=== PATIENT | male | born 1985 | race African-American/Black ===

== ENCOUNTER 2024-02-10 16:34 | Emergency (ER) | payer MEDICAID ==
[~2024-02-10] VITALS: Ht 188 cm; Wt 125.0 kg
--- NOTE | 2024-02-10 16:48 | ED.PDOC ---
History of Present Illness HPI Comments 38-year-old male with PMHx Schizoaffective Disorder, Seizures brought in by EMS presents with a chief complaint of hallucinations x onset today. Patient states that he hears voices, but they don't tell him to harm himself or others. Patient reports that he would like to be evaluated for a three-day hold. No other symptoms or modifying factors present at this time. Time Seen by MD: 16:40 Reviewed Notes: Nurses Notes, Medications, Allergies Allergies: Coded Allergies: NO KNOWN ALLERGIES (Unverified , 02/10/24) Information Source: Patient, Emergency Med Personnel Mode of Arrival: EMS Severity: Moderate Timing: Minutes Duration: Since onset Prehospital treatment: None Past Medical History PAST MEDICAL HISTORY: Schizophrenia, Seizures Surgical History (Other): FRONTAL LOBE SURGERY, RIGHT EYE REMOVAL Family History Family History: Reviewed,noncontributory to illness Social History Smoker: Non-Smoker Alcohol: Denies ETOH Use Drugs: Denies Drug Use Lives In: Home Constitutional: denies: chills, diaphoresis, fatigue, fever, malaise, sweats, weakness, others EENTM: denies: blurred vision, double vision, ear bleeding, ear discharge, ear drainage, ear pain, ear ringing, eye pain, eye redness, hearing loss, mouth pain, mouth swelling, nasal discharge, nose bleeding, nose congestion, nose pain, photophobia, tearing, throat pain, throat swelling, voice changes, others Respiratory: denies: cough, hemoptysis, orthopnea, SOB at rest, shortness of breath, SOB with excertion, stridor, wheezing, others Cardiovascular: denies: chest pain, dizzy spells, diaphoresis, Dyspnea on exertion, edema, irregular heart beat, left arm pain, lightheadedness, palpitations, PND, syncope, others Gastrointestinal: denies: abdomen distended, abdominal pain, blood streaked bowels, constipated, diarrhea, dysphagia, difficulty swallowing, hematemesis, melena, nausea, poor appetite, poor fluid intake, rectal bleeding, rectal pain, vomiting, others Genitourinary: denies: burning, dysuria, flank pain, frequency, hematuria, incontinence, penile discharge, penile sore, pain, testicle pain, testicle swelling, urgency, others Neurological: denies: dizziness, fainting, headache, left sided numbness, left sided weakness, numbness, paresthesia, pre-existing deficit, right sided numbness, right sided weakness, seizure, speech problems, tingling, tremors, weakness, others Musculoskeletal: denies: back pain, gout, joint pain, joint swelling, muscle pain, muscle stiffness, neck pain, others Integumetry: denies: bruises, change in color, change in hair/nails, dryness, laceration, lesions, lumps, rash, wounds, others Allergic/Immunocompromised: denies: Difficulty Healing, Frequent Infections, Hives, Itching, others Hematologic/Lymphatic: denies: anemia, blood clots, easy bleeding, easy bruising, swollen glands, others Endocrine: denies: excessive hunger, excessive sweating, excessive thirst, excessive urination, flushing, intolerance to cold, intolerance to heat, unexplained weight gain, unexplained weight loss, others Psychiatric: reports: schizophrenia (HALLUCINATIONS); denies: anxiety, bipolar disorder, depression, hopeless, panic disorder, sleepless, suicidal, others All Other Systems: Reviewed and Negative Physical Exam General Appearance: Mild Distress HEENT: Normal ENT Inspection, Pharynx Normal, TMs Normal Neck: Full Range of Motion, Non-Tender, Normal, Normal Inspection Respiratory: Chest Non-Tender, Lungs Clear, No Accessory Muscle Use, No Respiratory Distress, Normal Breath Sounds Cardiovascular: No Edema, No JVD, No Murmur, No Gallop, Normal Peripheral Pulses, Regular Rate/Rhythm Breast Exam: Deferred Gastrointestinal: No Organomegaly, Non Tender, No Pulsatile Mass, Normal Bowel Sounds, Soft Genitalia: Deferred Pelvic: Deferred Rectal: Deferred Extremities: No calf tenderness, Normal capillary refill, Normal inspection, Normal range of motion, Non-tender, No pedal edema Musculoskeletal : Apperance: Normal Neurologic: Alert, golf club head former II-XII nml as Tested, No Motor Deficits, Normal Affect, Normal Mood, No Sensory Deficits Cerebellar Function: Normal Reflexes: Normal Skin: Dry, Normal Color, Warm Lymphatic: No Adenopathy Was a procedure done? Was a procedure done?: No Differential Dx Considerations may include: Psychosis, generalized weakness, homicidal ideation, suicidal ideation X-Ray, Labs, Meds, VS Vital Signs Date Time Temp Pulse Resp B/P (MAP) Pulse Ox O2 Delivery O2 Flow Rate FiO2 02/10/24 17:34 81 17 98 Room Air 02/10/24 17:34 98.1 81 18 131/82 (98) 97 98.1 02/10/24 16:40 98.1 76 18 136/72 (93) 98 Lab Test 02/10/24 16:55 Range/Units Plasma/Serum Blood Alcohol < 3.0 <10 mg/dL Current Medications Medications (Trade) Dose Ordered Sig/Mckayla Route Start Time Stop Time Status Last Admin Levetiracetam (Keppra Tablet) 1,000 mg ONCE ONCE PO 02/10/24 16:45 02/10/24 16:46 DC 02/10/24 17:33 The patient was given Keppra 1000 mg by mouth The alcohol level is negative At this time, the patient is having evaluation by the psychiatrist The patient will be signed out to Dr. Sanchez Time of 1ST Reevaluation: 17:10 Reevaluation 1ST: Unchanged Patient Education/Counseling: Diagnosis, Treatment, Prognosis Family Education/Counseling: No Family Present Departure 1 Departure Time of Disposition: 20:35 Impression: Primary Impression: Schizoaffective disorder Qualified Codes: F25.9 - Schizoaffective disorder, unspecified Additional Impression: Hallucinations Disposition: 30 STILL A PATIENT Condition: Fair Critical Care Note Critical Care Time?: No Stability Stability form required: No Heart Score Heart Score: Heart Score Response (Comments) Value History N/A 0 EKG N/A 0 Age N/A 0 Risk Factors N/A 0 Troponin N/A 0 Total 0 I personally scribed for DESTINY CHILDRESS MD ([email or web address]) on 02/10/24 at 16:48. Electronically submitted by Yunier Lowe ([email or web address]). DESTINY CHILDRESS MD Feb 10, 2024 16:48
[2024-02-10] MEDS: levETIRAcetam 500 MG TAB PO ONE (17:33)
--- NOTE | 2024-02-10 21:26 | DVHINCON2 ---
Date of Service if different f: Feb 10, 2024 Time of Service: 21:09 Consult Consult Note PSYCHIATRY ED NEW CONSULT HPI: 38 yo M pt with PPH of schizoaffective disorder and seizure disorder presents to ED BIB EMS for safety, psychiatric stabilization and possible med initiation in setting of homelessness, med noncompliance, and AH. Psychiatry consulted for safety evaluation and recommendations in context of current presentation Per pt, reports he has not taken any psychotropic meds for over several months resulting in vague NC/NT AH like "someone is playing with me, i dont feel like myself, everything around me in confusing, i need to go to psychiatric hospital to get back on my meds" Currently denies depressed mood, hopelessness, helplessness, isolation, negative thoughts, loss of interest, or anhedonia. Denies anxiety/panic/OCD/PTSD symptoms. Sleep/appetite/energy/conc relatively WNL. Adamantly denies SI/HI. Denies VH/paranoia/catatonic. No overt manic, major depressive, cognitive, dissociative phenomena, panic, or somatic symptoms noted. Appears future oriented/goal directed. Denies acute psychosocial stressors. Pt currently does not have psychiatrist/therapist out in community although has sought outpt MH services in past. Currently not on any psychotropic agents for past several motnhs. Prior psych med trials abilify, depakote, trazodone. Some hx of med noncompliance. Freq THC use, denies ETOH or IDU Never , ? children, unemployed/ssi, currently homeless, no legal issues, limited support system noted, primarily GOD. Unknown trauma hx. Unknown FH. No acute medical issues although hx of seizures. No recent head injuries, NKDA Does not have hx of suicide attempts/SIB/PSG although has had prior psych hospitalizations for psychosis. Denies history of violence, unprovoked aggression, or assaultive behaviors. Does not have access to firearms. Currently denies SI/HI. MSE: General Appearance/Behavior: Alert and awake; appears stated age, obese, fair grooming and hygiene; calm and cooperative, fair eye contact, no PMA/PMR Speech: coherent, rrr Thought Process: linear, logical, limited/concrete Thought Content: Abnormal Thoughts and Perceptions: None Homicidality / Violent Thoughts: None Suicidality: adamantly denies SI Hallucinations: vague AH Delusions: denies paranoia, persecutory, or grandiose delusions Obsessions /compulsions : None Judgment and Insight: marginally fair to limited Mood & Affect: "okay" with mood-congruent, bit confused Orientation: oriented to person, place, time Attention/Concentration: appears intact Memory: grossly intact Language: no unusual or inappropriate language Assessment: 38 yo M pt with PPH of schizoaffective disorder and seizure disorder presents to ED BIB EMS for safety, psychiatric stabilization and possible med initiation in setting of homelessness, med noncompliance, and AH. Endorses AH in setting of ongoing med noncompliance but denies SI/HI/VH. No outpt MH services at present. Presently, pt does not show any signs of immediate danger to self or others hence does not meet criteria for 5150 or involuntary inpatient psych admission as is not DTS, DTO or GD. However voluntary inpt psychiatric hospitalization was offered and pt expressed in this to get stabilized on meds Pt will benefit from inpatient psych admission for safety, psychiatric s tabilization and possible medication initiation/ optimization. Pt willing to transfer to inpt psych hospitalization voluntarily. Primary Diagnosis: Schizoaffective disorder unspecified. THC use disorder moderate Recommend vol transfer to inpt psych facility for higher level of care 1:1 sitter is NOT recommended Recommend continuation/restart of outpt med regimen - abilify 10 mg bid, depakote 500 mg bid and Trazodone 50 mg qhs Risks/benefits/alternative treatments discussed, informed consent provided by pt If patient later refuses voluntary hospitalization or if no voluntary beds are available, pt does NOT need 5150 hold, pt can be discharged with housing resources Pt verbalized understanding and is receptive to above tx plan This case was discussed with ED nurse/provider and all parties in agreement with above tx plan Richard Acevedo MD Plan discussed with: Patient RICHARD ACEVEDO MD Feb 10, 2024 21:26
[2024-02-10] MEDS: traZODone HCL 50 MG TAB PO ONE (23:51)
[2024-02-11 03:23] VITALS: RESP 16; O2SAT 96
[2024-02-11 08:02] VITALS: BP 143/56; PULSE 81; RESP 16; TEMP 98.2; O2SAT 97
[2024-02-11] MEDS ORDERED: TRAZ-181 PO (09:49)
[2024-02-11] MEDS ORDERED: ARIP10TA8 PO (09:49)
== END 2024-02-11 10:19 | disposition left against medical advice (07) ==
LOC: EDBD 16:34 → ER 16:34
DX: F25.9 Schizoaffective disorder, unspecified (principal); G40.909 Epilepsy, unspecified, not intractable, without status epilepticus; F12.20 Cannabis dependence, uncomplicated; Z59.00 Homelessness unspecified
CPT/HCPCS: 36415; 80320

== ENCOUNTER 2024-02-11 12:17 | Emergency (ER) | payer MEDICAID ==
[~2024-02-11] VITALS: Ht 188 cm; Wt 108.0 kg
[~2024-02-11 12:17] MED LIST: ARIP10TA8 PO; TRAZ-181 PO
[2024-02-11 12:23] VITALS: BP 115/73; PULSE 83; RESP 16; O2SAT 97
--- NOTE | 2024-02-11 12:32 | ED.PDOC ---
Psychiatric HPI Comments 38-year-old male with PMHx Schizoaffective Disorder, Seizures brought in by EMS presents with a chief complaint of mental health. Patient states that he hears voices, but they don't tell him to harm himself or others. Patient reports that he would like to be evaluated for a three-day hold. Pt left AMA yesterday while waiting for social media assistant consult and came back to the ED today. Chief Complaint: mental health Time Seen by MD: 12:29 Primary Care Provider: NONE Reviewed Notes: [employer] Liquor Maker Notes Information Source: Patient, Emergency Med Personnel Mode of Arrival: EMS Severity: Able to Care for Self Severity of Pain: Moderate Severity of Mental Status: Moderate Severity of Symptoms: Moderate Timing: Days Duration: Since onset Prehospital treatment: None Presents with: Bizarre Behavior Ingestion: Unknown Circumstance: Medical Clearance Current substance abuse: None Stressors: None History of: Schizophrenia Quality: None Associated signs and symptoms: Hallucinations Past Medical History PAST MEDICAL HISTORY: Schizophrenia, Seizures Surgical History: Denies all surgeries Family History Family History: Reviewed,noncontributory to illness Social History Smoker: Non-Smoker Alcohol: Denies ETOH Use Drugs: Denies Drug Use Lives In: Home Constitutional: denies: chills, diaphoresis, fatigue, fever, malaise, sweats, weakness, others EENTM: denies: blurred vision, double vision, ear bleeding, ear discharge, ear drainage, ear pain, ear ringing, eye pain, eye redness, hearing loss, mouth pain, mouth swelling, nasal discharge, nose bleeding, nose congestion, nose pain, photophobia, tearing, throat pain, throat swelling, voice changes, others Respiratory: denies: cough, hemoptysis, orthopnea, SOB at rest, shortness of breath, SOB with excertion, stridor, wheezing, others Cardiovascular: denies: chest pain, dizzy spells, diaphoresis, Dyspnea on exertion, edema, irregular heart beat, left arm pain, lightheadedness, palpitations, PND, syncope, others Gastrointestinal: denies: abdomen distended, abdominal pain, blood streaked bowels, constipated, diarrhea, dysphagia, difficulty swallowing, hematemesis, melena, nausea, poor appetite, poor fluid intake, rectal bleeding, rectal pain, vomiting, others Genitourinary: denies: burning, dysuria, flank pain, frequency, hematuria, incontinence, penile discharge, penile sore, pain, testicle pain, testicle swelling, urgency, others Neurological: denies: dizziness, fainting, headache, left sided numbness, left sided weakness, numbness, paresthesia, pre-existing deficit, right sided numbness, right sided weakness, seizure, speech problems, tingling, tremors, weakness, others Musculoskeletal: denies: back pain, gout, joint pain, joint swelling, muscle pain, muscle stiffness, neck pain, others Integumetry: denies: bruises, change in color, change in hair/nails, dryness, laceration, lesions, lumps, rash, wounds, others Allergic/Immunocompromised: denies: Difficulty Healing, Frequent Infections, Hives, Itching, others Hematologic/Lymphatic: denies: anemia, blood clots, easy bleeding, easy bruising, swollen glands, others Endocrine: denies: excessive hunger, excessive sweating, excessive thirst, excessive urination, flushing, intolerance to cold, intolerance to heat, unexplained weight gain, unexplained weight loss, others Psychiatric: reports: schizophrenia; denies: anxiety, bipolar disorder, depression, hopeless, panic disorder, sleepless, suicidal, others All Other Systems: Reviewed and Negative Physical Exam General Appearance: Mild Distress HEENT: Normal ENT Inspection, Pharynx Normal, TMs Normal Neck: Full Range of Motion, Non-Tender, Normal, Normal Inspection Respiratory: Chest Non-Tender, Lungs Clear, No Accessory Muscle Use, No Respira tory Distress, Normal Breath Sounds Cardiovascular: No Edema, No JVD, No Murmur, No Gallop, Normal Peripheral Pulses, Regular Rate/Rhythm Breast Exam: Deferred Gastrointestinal: No Organomegaly, Non Tender, No Pulsatile Mass, Normal Bowel Sounds, Soft Genitalia: Deferred Pelvic: Deferred Rectal: Deferred Extremities: No calf tenderness, Normal capillary refill, No pedal edema Musculoskeletal : Apperance: Normal Neurologic: Alert, bulk coolers installer II-XII nml as Tested, No Motor Deficits, Normal Affect, Normal Mood, No Sensory Deficits Cerebellar Function: Normal Reflexes: Normal Skin: Dry, Normal Color, Warm Lymphatic: No Adenopathy Was a procedure done? Was a procedure done?: No Psych Differential Dx Psych. Differential Dx: Depression, No symptoms Reported, Schizoprenia Other Differentail Dx hallucinations, medical clearance X-Ray, Labs, Meds, VS Schizoaffective disorder Time of 1ST Reevaluation: 13:00 Reevaluation 1ST: Unchanged Patient Education/Counseling: Diagnosis, Treatment, Prognosis, Need For Follow Up Family Education/Counseling: No Family Present Departure 1 Departure Time of Disposition: 13:01 Impression: Primary Impression: Schizoaffective disorder Qualified Codes: F25.9 - Schizoaffective disorder, unspecified Disposition: 01 HOME / SELF CARE / HOMELESS Condition: Fair Discharged With: Self Critical Care Note Critical Care Time?: No Stability Stability form required: No Heart Score Heart Score: Heart Score Response (Comments) Value History N/A 0 EKG N/A 0 Age N/A 0 Risk Factors N/A 0 Troponin N/A 0 Total 0 I personally scribed for DESTINY CHILDRESS MD ([email or web address]) on 02/11/24 at 12:32. Electronically submitted by Gertrudis Sanchez ([email or web address]). DESTINY CHILDRESS MD Feb 11, 2024 12:32
== END 2024-02-11 13:34 | disposition home or self-care (01) ==
LOC: EDBD 12:17 → ER 12:17 → EDUNIT# 12:17 → ER 13:34
DX: F25.9 Schizoaffective disorder, unspecified (principal)